=== PATIENT | male | born 1965 | race Caucasian/White ===

== ENCOUNTER 2016-10-28 20:06 | Observation (INO) | payer OTHER ==
[~2016-10-28] VITALS: Ht 185.4 cm; Wt 69.2 kg
[~2016-10-28 20:06] MED LIST: ASPIRIN325 MG PO; IBUPROFEN800 MG PO; NAPROSYN500 MG PO; NOHOMEMEDS; PEN-VEE K,VEET500 MG PO; TRAMADOL HCL50 MG PO; VICODIN 5-3001 EACH PO
[2016-10-28 20:33] LABS: HEMATOCRIT 38.1 % (38.0-50.0); MCH 31.4 PG (29.0-34.0); MCHC 34.6 G/DL (30.0-36.0); MCV 90.5 FL (86-99); MEAN PLAT.VOLUME 8.8 uM^3 (9.0-12.4); PLATELET COUNT 207 K/uL (156-360); RBC DIS.WIDTH-CV 13.2 % (11.8-14.6); RED BLOOD COUNT 4.21 M/uL (4.00-5.50); WHITE BLOOD COUNT 6.5 K/uL (4.1-10.2)
[2016-10-28 20:43] LABS: CHLORIDE 102 mEq/L (99-109); POTASSIUM 3.7 mEq/L (3.7-5.4); SODIUM 135 mEq/L (136-147)
[2016-10-28 20:45] LABS: GLUCOSE 109 mg/dL (70-99)
[2016-10-28 20:46] LABS: ANION GAP 9 MEQ/L (2-14)
[2016-10-28 20:49] LABS: GFR ESTIMATE (CALCULATED) > 59 mL/min/
[2016-10-28 20:50] LABS: UREA NITROGEN (BUN) 14 mg/dL (9-23)
[2016-10-28 20:57] LABS: TROP-I INTERPRETATION NEGATIVE; TROPONIN-I < 0.01 ng/mL (0.0-0.30)
[2016-10-28 21:30] LABS: D-DIMER ELISA 0.67 mg/L FEU (< 0.57)
[2016-10-28] MEDS ORDERED: ADVIL,NUPRIN,M200 MG PO (21:33)
[2016-10-28 22:32] LABS: INFLUENZA A VIRAL ANTIGEN POSITIVE; INFLUENZA B VIRAL ANTIGEN NEGATIVE
[2016-10-29 00:48] VITALS: BP 105/55
[2016-10-29 04:30] VITALS: BP 94/51
[2016-10-29 07:58] VITALS: BP 97/53
[2016-10-29 11:44] VITALS: BP 100/60
[2016-10-29 15:37] VITALS: BP 98/50
[2016-10-29 20:11] VITALS: BP 120/62
[2016-10-30 06:21] VITALS: BP 104/66
[2016-10-30 07:57] VITALS: BP 102/54
[2016-10-30] MEDS ORDERED: SPIRIVA RESPIMAT4 GM IH (09:48)
[2016-10-30] MEDS ORDERED: AZITHROMYCIN500 M1 PO (09:48)
[2016-10-30] MEDS ORDERED: PREDNISONE10 MG PO (09:48)
[2016-10-30] MEDS ORDERED: TAMIFLU75 MG PO (09:48)
[2016-10-30] MEDS ORDERED: ADVAIR HFA120 INHALA IH (09:48)
== END 2016-10-30 12:39 | disposition home or self-care (01) ==
LOC: EME 20:06 → EDOF 23:17 → 5WEST 10-29 00:08
PROVIDERS: Emergency Medicine
DX: J09.X2 Influenza due to identified novel influenza A virus with other respiratory manifestations (principal); J44.0 Chronic obstructive pulmonary disease with (acute) lower respiratory infection; J44.1 Chronic obstructive pulmonary disease with (acute) exacerbation; R09.02 Hypoxemia; F17.210 Nicotine dependence, cigarettes, uncomplicated; Z87.442 Personal history of urinary calculi; F14.10 Cocaine abuse, uncomplicated; Z80.1 Family history of malignant neoplasm of trachea, bronchus and lung
CPT/HCPCS: 71020; 71275; 80048; 83605; 84484; 85027; 85379; 87040; 87502; 93005; 94640; 94640 76; 94760; 99202; 99281; 99285; G0378; J1650; J1885; J1956; J2930; J7030